=== PATIENT | female | born 1970 | race Caucasian/White ===

== ENCOUNTER 2018-01-02 18:10 | Emergency (ER) | payer SELFPAY ==
[~2018-01-02] VITALS: Ht 165.1 cm; Wt 85.0 kg
[2018-01-02 18:13] VITALS: BP 151/77
== END 2018-01-02 18:49 | disposition left against medical advice (07) ==
LOC: ER 18:10
DX: R55 Syncope and collapse (principal); F11.10 Opioid abuse, uncomplicated; Z53.21 Procedure and treatment not carried out due to patient leaving prior to being seen by health care provider